=== PATIENT | female | born 1960 | race African-American/Black ===

== ENCOUNTER 2016-10-02 13:22 | Day surgery (SDC) | payer MEDICAID ==
[~2016-10-02] VITALS: Ht 167.6 cm; Wt 77.6 kg
[~2016-10-02 13:22] MED LIST: ATARAX 25MG25 MG/TAB PO; CLARITIN 1010 MG/TAB PO; DAZIDOX20 MG PO; DESYREL DIVIDO150 M1 PO; DEXILANT60 MG PO; FLOVENT DI50 MCG/Act IH; PHENERGAN 25 TA25 MG PO; PROAIR HFA0.09 MG/AC IH; REQUIP 0.5MG0.5 MG PO; RESTORIL30 MG PO; SEROQUEL 2525 MG/TAB PO; SOMA 350MG350 MG/TAB PO; SYNTHROID 0.10.15 MG PO; VALIUM 5MG T5 MG/TAB PO; WELLBUTRIN XL300 M1 PO
[2016-10-02] MEDS ORDERED: PERCOCET 325 MG1 TAB PO (13:46)
[2016-10-02 15:05] VITALS: BP 109/72; PULSE 73; TEMP 98
[2016-10-02 15:20] VITALS: BP 109/67; PULSE 86
[2016-10-02 15:55] VITALS: BP 113/83; PULSE 87; TEMP 98.3
[2016-10-02 16:47] VITALS: BP 102/63; PULSE 88
== END 2016-10-02 15:45 | disposition home or self-care (01) ==
LOC: SDCO 13:22
DX: R10.13 Epigastric pain (principal); K21.9 Gastro-esophageal reflux disease without esophagitis
CPT/HCPCS: OP; J2250; J3010; J7030

== ENCOUNTER → 2018-04-23 | Outpatient (CLI) | payer MEDICAID ==
[~2018-04-23] MED LIST changes: +PERCOCET 325 MG1 TAB PO
== END ==
LOC: COL.VAS 13:00
DX: I36.1 Nonrheumatic tricuspid (valve) insufficiency (principal); R09.02 Hypoxemia

== ENCOUNTER → 2018-06-25 | Outpatient (CLI) | payer MEDICAID | LOC: MHCPAIN 09:14 | DX: G89.29 Other chronic pain (principal); M47.817 Spondylosis without myelopathy or radiculopathy, lumbosacral region; M54.16 Radiculopathy, lumbar region; M53.3 Sacrococcygeal disorders, not elsewhere classified | CPT/HCPCS: G0463 ==

== ENCOUNTER → 2018-06-25 | Outpatient (CLI) | payer MEDICAID | LOC: COL.RAD 10:30 | DX: S33.140A Subluxation of L4/L5 lumbar vertebra, initial encounter (principal); M46.96 Unspecified inflammatory spondylopathy, lumbar region; M48.061 Spinal stenosis, lumbar region without neurogenic claudication ==

== ENCOUNTER → 2018-07-10 | Outpatient (CLI) | payer MEDICAID | LOC: MHCPAIN 13:03 | DX: G89.29 Other chronic pain (principal); M47.817 Spondylosis without myelopathy or radiculopathy, lumbosacral region; M54.16 Radiculopathy, lumbar region; M53.3 Sacrococcygeal disorders, not elsewhere classified | CPT/HCPCS: G0463 ==

== ENCOUNTER → 2018-10-09 | Outpatient (CLI) | payer MEDICAID | LOC: MHCPAIN 10:21 | DX: G89.29 Other chronic pain (principal); M47.817 Spondylosis without myelopathy or radiculopathy, lumbosacral region; M54.16 Radiculopathy, lumbar region; M53.3 Sacrococcygeal disorders, not elsewhere classified | CPT/HCPCS: G0463 ==